=== PATIENT | male | born 1990 | race African-American/Black ===

== ENCOUNTER 2023-01-12 07:57 | Emergency (ER) | payer SELFPAY ==
[~2023-01-12] VITALS: Ht 172.7 cm; Wt 73.0 kg
[2023-01-12 08:15] VITALS: BP 144/72
== END 2023-01-12 08:50 | disposition left against medical advice (07) ==
LOC: ER 08:27
DX: Z53.21 Procedure and treatment not carried out due to patient leaving prior to being seen by health care provider (principal)

== ENCOUNTER 2023-11-03 16:14 | Emergency (ER) | payer OTHER ==
[~2023-11-03] VITALS: Ht 175.3 cm; Wt 90.0 kg
[2023-11-03] MEDS ORDERED: SODIUM CHLORIDE 0.9% 1,000 ML IV ONE (16:15)
[2023-11-03] MEDS ORDERED: MIDAZOLAM HCL 2 MG/2 ML VIAL IV ONE ×2 (16:15)
[2023-11-03] MEDS ORDERED: MIDAZOLAM HCL 2 MG/2 ML VIAL IM ONE (17:45)
[2023-11-03] MEDS ORDERED: DIPHENHYDRAMINE 50MG/ML VIAL IM PRN (17:45)
[2023-11-03] MEDS ORDERED: HALOPERIDOL LACTATE 5MG/ML VIAL IM ONE (17:45)
[2023-11-03 19:03] VITALS: BP 124/91; PULSE 130; RESP 20; TEMP 98.6; O2SAT 98
== END 2023-11-03 20:39 | disposition left against medical advice (07) ==
LOC: ER 16:14
DX: R45.1 Restlessness and agitation (principal); F31.9 Bipolar disorder, unspecified
CPT/HCPCS: 96374; 99283; J1630; J2250; J7030; Z7610

== ENCOUNTER 2024-04-09 00:10 | Emergency (ER) | payer OTHER ==
[~2024-04-09] VITALS: Ht 182.9 cm; Wt 75.0 kg
[2024-04-09 00:13] VITALS: O2SAT 100
[2024-04-09] MEDS: DIPHENHYDRAMINE 50MG/ML VIAL IM ONE (01:25)
[2024-04-09] MEDS: HALOPERIDOL LACTATE 5MG/ML VIAL IM ONE ×2 (01:25→13:40)
[2024-04-09] MEDS: LORAZEPAM 2MG/ML INJ IM ONE ×2 (01:26→13:40)
[2024-04-09 01:40] LABS: HEMATOCRIT. 37.8 % (42.0-52.0); MEAN CORPUSCULAR HEMOGLOBIN 17.9 pg (28.0-32.0); MEAN CORPUSCULAR HGB CONC 31.6 g/dL (31.0-37.0); MEAN CORPUSCULAR VOLUME 56.8 fL (80.0-94.0); RED BLOOD CELL COUNT 6.66 mill/uL (4.7-6.1); RED CELL DISTRIBUTION WIDTH 22.7 % (11.6-14.6); WHITE BLOOD COUNT 9.2 x1000/uL (4.5-11.0)
[2024-04-09 01:43] LABS: DIFFERENTIAL COMMENT 1
[2024-04-09 01:46] LABS: CHLORIDE 106 mEq/L (98-107); POTASSIUM 4.2 mEq/L (3.5-5.1); SODIUM 142 mEq/L (136-145)
[2024-04-09 01:47] LABS: CARBON DIOXIDE 25 mEq/L (21-32)
[2024-04-09 01:48] LABS: CALCIUM 10.6 mg/dL (8.7-10.4)
[2024-04-09 01:51] LABS: *AMPHETAMINES SCREEN URINE PRESUMPTIVE POSITIVE (NEGATIVE); *BARBITURATES SCREEN URINE NEGATIVE (NEGATIVE); *BENZODIAZEPINES SCREEN URINE NEGATIVE (NEGATIVE); *COCAINE SCREEN URINE NEGATIVE (NEGATIVE)
[2024-04-09 01:52] LABS: CANNABINOID URINE SCREEN NEGATIVE (NEGATIVE); CREATININE 1.5 mg/dL (0.6-1.3); ECSTASY MDMA SCREEN URINE CONF.TEST INDICATED (NEGATIVE); GLUCOSE 83 mg/dL (70-105); METHADONE URINE SCREEN NEGATIVE (NEGATIVE); OPIATES URINE SCREEN NEGATIVE (NEGATIVE); PHENCYCLIDINE URINE SCREEN NEGATIVE (NEGATIVE); UREA NITROGEN BLOOD 15 mg/dL (9-23)
[2024-04-09 01:54] LABS: ACETAMINOPHEN < 2 ug/mL (10-30)
[2024-04-09 01:55] LABS: ETHANOL BLOOD < 10 mg/dL (<10)
[2024-04-09 03:45] LABS: PLATELET ESTIMATE NORMAL
[2024-04-09 03:46] LABS: OVALOCYTES 4+; TARGET CELLS 4+; TEAR DROP CELLS 2+
[2024-04-09 03:47] LABS: GIANT PLATELETS FEW; MICROCYTOSIS 2+
[2024-04-09 03:48] LABS: MEAN PLATELET VOLUME 9.5 fl (7.4-10.4); PLATELET 360 x1000/uL (130-400)
[2024-04-09 20:00] VITALS: BP 100/50; PULSE 69; RESP 16; TEMP 98.2
[2024-04-09] MEDS: OLANZAPINE 5MG TABLET ODT PO SCH (20:55)
== END 2024-04-09 22:00 ==
LOC: ER 00:10
DX: F15.10 Other stimulant abuse, uncomplicated (principal); F10.20 Alcohol dependence, uncomplicated; F31.9 Bipolar disorder, unspecified; Z20.822 Contact with and (suspected) exposure to COVID-19
CPT/HCPCS: 80305; 80048; 80307; 80329; 80320; 85025; 36415; 96372; 99285; 87426; J1200; J1630; J2060; G0480